=== PATIENT | female | born 1995 | race Caucasian/White ===

== ENCOUNTER 2017-09-01 00:26 | Emergency (ER) | payer OTHER ==
[2017-09-01] MEDS: ONDANSETRON ODT 4 MG TAB.RAPDIS. PO (01:19)
[2017-09-01] MEDS: ONDANSETRON PF 4 MG/2 ML VIAL. IV (01:45)
[2017-09-01] MEDS: IV NORMAL SALINE 1000ML BAG 1,000 ML IV (01:46)
[2017-09-01 01:49] LABS: ADD MAN DIFF? NO
[2017-09-01 01:54] LABS: BASO % 1 % (0-3); EOS % 5 % (0-3); HEMATOCRIT 39.7 % (36.0-47.0); HEMOGLOBIN 13.6 g/dL (12.0-15.5); LYMPH # 3.4 x10^3/uL (1.0-4.8); LYMPH % 40 % (24-48); MEAN CORPUSCULAR HEMOGLOBIN 29 pg (25-35); MEAN CORPUSCULAR HGB CONC 34 g/dL (31-37); MEAN CORPUSCULAR VOLUME 86 fL (79-100); MONO % 8 % (0-9); NEUT % 46 % (31-73); PLATELET COUNT 294 x10^3/uL (140-400); RED BLOOD COUNT 4.64 x10^6/uL (3.50-5.40); RED CELL DISTRIBUTION WIDTH 13.3 % (11.5-14.5); WHITE BLOOD COUNT 8.4 x10^3/uL (4.0-11.0)
[2017-09-01 01:59] LABS: URINE HCG POC HCG NEGATIVE (Negative)
[2017-09-01 01:59] LABS: BILIRUBIN,URINE NEGATIVE (NEG); GLUCOSE,URINE NEGATIVE (NEG); NITRITE,URINE POSITIVE (NEG); PROTEIN,URINE NEGATIVE (NEG-TRACE); UROBILINOGEN,URINE 0.2 mg/dL (0.2 mg/dL)
[2017-09-01 02:05] LABS: ANION GAP 9 (6-14); BLOOD UREA NITROGEN 14 mg/dL (7-20); BUN/CREATININE RATIO 16 (6-20); CALCIUM 8.6 mg/dL (8.5-10.1); CARBON DIOXIDE 28 mmol/L (21-32); CHLORIDE 105 mmol/L (98-107); CREATININE 0.9 mg/dL (0.6-1.0); GFR 80.7; GLUCOSE 93 mg/dL (70-99); POTASSIUM 3.9 mmol/L (3.5-5.1); SODIUM 142 mmol/L (136-145)
[2017-09-01 02:11] LABS: ALBUMIN 3.7 g/dL (3.4-5.0); ALBUMIN/GLOBULIN RATIO 1.1 (1.0-1.7); ALK PHOS 67 U/L (46-116); ALT (SGPT) 32 U/L (14-59); AST (SGOT) 36 U/L (15-37); TOTAL BILIRUBIN 0.2 mg/dL (0.2-1.0)
[2017-09-01 02:46] LABS: BACTERIA,URINE MANY /HPF (0-FEW); RBC,URINE 0 /HPF (0-2); SQUAMOUS EPITHELIAL CELL,UR MOD /LPF; WBC,URINE 20-40 /HPF (0-4)
[2017-09-01] MEDS: CEPHALEXIN 250 MG CAPSULE. PO (03:09)
== END 2017-09-01 03:10 | disposition home or self-care (01) ==
LOC: ER 00:26
DX: N39.0 Urinary tract infection, site not specified (principal); R07.89 Other chest pain; R11.2 Nausea with vomiting, unspecified
CPT/HCPCS: 36415; 71020; 80053; 81001; 81025; 83690; 85025; 87086; 87186; 93005; 96361; 96374; 99285-25; J2405; J7030; Q0162

== ENCOUNTER 2017-09-25 04:07 | Emergency (ER) | payer OTHER ==
[2017-09-25] MEDS: ONDANSETRON ODT 4 MG TAB.RAPDIS. PO (04:41)
[2017-09-25 04:46] LABS: AGAP ISTAT 17 mmol/L (6-14); BUN ISTAT 11 mg/dL (8-26); CHLORIDE ISTAT 104 mmol/L (98-110); CREATININE ISTAT 0.7 mg/dL (0.5-1.4); GLUCOSE ISTAT 90 mg/dL (70-99); HEMATOCRIT ISTAT 40 % (36-40); HEMOGLOBIN ISTAT 13.6 g/dL (12-15); ION CA ISTAT 1.18 mmol/L (1.13-1.32); POTASSIUM ISTAT 3.5 mmol/L (3.5-5.0); SODIUM ISTAT 141 mmol/L (135-145); TOT CO2 ISTAT 25 mmol/L (23-32)
== END 2017-09-25 05:25 | disposition home or self-care (01) ==
LOC: ER 05:25
DX: B34.9 Viral infection, unspecified (principal)
CPT/HCPCS: 36415; 80047; 85014; 85018; 99283; Q0162

== ENCOUNTER 2018-03-27 20:19 | Emergency (ER) | payer SELFPAY, OTHER ==
[2018-03-27 20:52] LABS: URINE HCG POC HCG NEGATIVE (Negative)
[2018-03-27 21:08] LABS: BASO % 0 % (0-3); EOS # 0.1 x10^3/uL (0.0-0.7); EOS % 1 % (0-3); HEMATOCRIT 45.9 % (36.0-47.0); HEMOGLOBIN 15.6 g/dL (12.0-15.5); LYMPH % 9 % (24-48); MEAN CORPUSCULAR HEMOGLOBIN 30 pg (25-35); MEAN CORPUSCULAR HGB CONC 34 g/dL (31-37); MEAN CORPUSCULAR VOLUME 87 fL (79-100); MONO # 0.5 x10^3/uL (0.0-1.1); MONO % 4 % (0-9); NEUT # 9.6 x10^3uL (1.8-7.7); NEUT % 86 % (31-73); PLATELET COUNT 293 x10^3/uL (140-400); RED BLOOD COUNT 5.28 x10^6/uL (3.50-5.40); RED CELL DISTRIBUTION WIDTH 12.9 % (11.5-14.5); WHITE BLOOD COUNT 11.2 x10^3/uL (4.0-11.0)
[2018-03-27 21:10] LABS: BILIRUBIN,URINE SMALL (NEG); CLARITY,URINE CLOUDY; COLOR,URINE YELLOW; GLUCOSE,URINE NEGATIVE (NEG); NITRITE,URINE NEGATIVE (NEG); PH,URINE 5.5; PROTEIN,URINE NEGATIVE (NEG-TRACE); UROBILINOGEN,URINE 0.2 mg/dL (0.2 mg/dL)
[2018-03-27] MEDS: ONDANSETRON PF 4 MG/2 ML VIAL. IV (21:10)
[2018-03-27 21:11] LABS: ADD MAN DIFF? YES
[2018-03-27] MEDS: PANTOPRAZOLE IV PUSH 40 MG VIAL. IVP (21:11)
[2018-03-27] MEDS: LIDO:MAALOX 1:1 20 ML SINGLE DOSE. SWSW (21:13)
[2018-03-27] MEDS: IV NORMAL SALINE 1000ML BAG 1,000 ML IV ×2 (21:13→22:06)
[2018-03-27 21:17] LABS: BACTERIA,URINE MODERATE /HPF (0-FEW); RBC,URINE 0 /HPF (0-2); SQUAMOUS EPITHELIAL CELL,UR MOD /LPF
[2018-03-27 21:21] LABS: ANION GAP 8 (6-14); BLOOD UREA NITROGEN 16 mg/dL (7-20); BUN/CREATININE RATIO 18 (6-20); CALCIUM 8.9 mg/dL (8.5-10.1); CARBON DIOXIDE 28 mmol/L (21-32); CHLORIDE 102 mmol/L (98-107); CREATININE 0.9 mg/dL (0.6-1.0); GFR 79.8; GLUCOSE 94 mg/dL (70-99); POTASSIUM 3.8 mmol/L (3.5-5.1); SODIUM 138 mmol/L (136-145)
[2018-03-27 21:21] LABS: ETHANOL < 10 mg/dL (0-10)
[2018-03-27 21:25] LABS: AMPHETAMINE/METHAMPHETAMINE NEG (NEG); BARBITURATES NEG (NEG); BENZODIAZEPINES NEG (NEG); CANNABINOIDS NEG (NEG); COCAINE NEG (NEG); ETHANOL, URINE NEG (NEG); METHADONE NEG (NEG); OPIATES NEG (NEG); PHENCYCLIDINE NEG (NEG)
[2018-03-27 21:29] LABS: ALBUMIN 4.1 g/dL (3.4-5.0); ALBUMIN/GLOBULIN RATIO 1.1 (1.0-1.7); ALK PHOS 79 U/L (46-116); ALT (SGPT) 30 U/L (14-59); AST (SGOT) 21 U/L (15-37); LIPASE 148 U/L (73-393); TOTAL BILIRUBIN 0.6 mg/dL (0.2-1.0); TOTAL PROTEIN 7.8 g/dL (6.4-8.2)
[2018-03-27 21:29] LABS: TROPONINI < 0.017 ng/mL (0.000-0.055)
[2018-03-27 21:34] LABS: CKMB INDEX 0.4 % (0-4); CKMB MASS 1.2 ng/mL (0.0-3.6); CREATINE KINASE 287 U/L (26-192)
[2018-03-27 21:42] LABS: % BANDS 4 % (0-9); % EOS 2 % (0-5); % LYMPHS 5 % (24-48); % METAS 1 % (0-0); % MONOS 5 % (0-10); % SEGS 83 % (35-66)
[2018-03-27 21:43] LABS: PLT ESTIMATE ADEQUATE (ADEQUATE)
== END 2018-03-27 22:59 | disposition home or self-care (01) ==
LOC: ER 22:59
DX: N39.0 Urinary tract infection, site not specified (principal); E86.0 Dehydration; K59.00 Constipation, unspecified; R51 Headache; R07.89 Other chest pain
CPT/HCPCS: 36415; 74022; 80053; 80307; 81001; 81025; 82553; 83690; 84484; 85007; 85025; 87086; 93005; 96361; 96365; 96375; 99285-25; C9113; G0480; J0690; J2405; J7030

== ENCOUNTER 2018-07-16 07:28 | Emergency (ER) | payer OTHER ==
[~2018-07-16] VITALS: Ht 154.9 cm; Wt 71.7 kg
[~2018-07-16 07:28] MED LIST: CEPH-264 PO; DICY20TA3 PO; METH40VI IJ; ONDA4TAB10 SL; SULF1TAB24 PO
--- NOTE | 2018-07-16 08:06 | PHYS DOC ---
Past Medical History Past Medical History: No Pertinent History Past Surgical History: Alcohol Use: None Drug Use: None Adult General Chief Complaint Chief Complaint: PAIN ON URINATION [facility] HPI Patient is a 22-year-old female who presents to the emergency department for evaluation. She states that for the past several days, she has been having some burning with urination, as well as some urinary frequency. She has not had any vaginal discharge or vaginal lesions. She has, however, developed a "cold sore" on her lip, and she states that about a week or so prior to the onset of her symptoms, she did have unprotected sex, both oral and vaginally, with a new partner. She has not had any fevers or chills. There are no alleviating, or exacerbating factors to her symptoms otherwise. Review of Systems Review of Systems Constitutional: Denies fever or chills [] Eyes: Denies change in visual acuity, redness, or eye pain [] Respiratory: Denies cough or shortness of breath [] Cardiovascular: No additional information not addressed in HPI [] GI: Denies abdominal pain, nausea, vomiting, bloody stools or diarrhea [] : Denies vaginal bleeding or pelvic pain, except discomfort with urination.[] Musculoskeletal: Denies back pain or joint pain [] Integument: Denies rash or skin lesions him except as noted in the history of present illness. [] Allergies Allergies Allergies Coded Allergies Type Severity Reaction Last Updated Verified No Known Drug Allergies 12/29/13 No Physical Exam Physical Exam PHYSICAL EXAM: CONSTITUTIONAL: Well developed, well nourished HEAD: normocephalic, atraumatic EENT: PERRL, EOMI. Conjunctivae normal color, sclerae non-icteric; moist mucous membranes. Just under to the vermilion border in the midline of the lower lip, there is a cluster of about 4-5 vesicular lesions on an erythematous base. NECK: Supple, non-tender; no meningismus. LUNGS: Lungs CTA, breathing even and unlabored. Normal air movement. HEART: Regular rate and rhythm, no murmur CHEST: No deformity; non-tender ABDOMEN: The abdomen is soft, and non-tender, no masses or bruits. EXTREM: Normal ROM; no deformity, no calf tenderness. Normal pulses palpable in all extremities. There is no pedal edema. SKIN: No rash; no diaphoresis NEURO: Alert; normal speech and cognition; CN's grossly intact; strength grossly intact without focal deficit. BACK: No CVA TTP. PELVIC EXAM: Normal external genitalia. There are no vesicular lesions noted or other genital lesions. There is a small amount of thin white vaginal discharge, the cervix appears normal, there is mild cervical motion tenderness. There is no suprapubic or adnexal tenderness to palpation. Exam was performed in the presence of the patient's nurse, Mireya. Current Patient Data Vital Signs Vital Signs Date Time Temp Pulse Resp B/P (MAP) Pulse Ox O2 Delivery O2 Flow Rate FiO2 07/16/18 07:45 98.5 71 16 113/63 (80) 99 Room Air 98.5 Lab Values Laboratory Tests Test 07/16/18 07:36 07/16/18 07:48 Urine Collection Type Unknown Urine Color Yellow Urine Clarity Cloudy Urine pH 5.5 Urine Specific Howard >=1.030 Urine Protein Negative mg/dL (NEG-TRACE) Urine Glucose (UA) Negative mg/dL (NEG) Urine Ketones (Stick) Negative mg/dL (NEG) Urine Blood Small (NEG) Urine Nitrite Negative (NEG) Urine Bilirubin Negative (NEG) Urine Urobilinogen Dipstick 0.2 mg/dL (0.2 mg/dL) Urine Leukocyte Esterase Moderate (NEG) Urine RBC 3-5 /HPF (0-2) Urine WBC >40 /HPF (0-4) Urine Squamous Epithelial Cells Many /LPF Urine Bacteria Many /HPF (0-FEW) Urine Mucus Marked /LPF POC Urine HCG, Qualitative Hcg negative (Negative) Microbiology 07/16/18 Wet Prep - Final, Complete WET PREP Final YEAST NONE SEEN TRICHOMONAS NONE SEEN CLUE CELLS NONE SEEN ALTERED SURAJ ALTERED SURAJ PRESENT SUGGESTIVE OF BACTERIAL VAGINOSIS SQUAMOUS EPS FEW EKG EKG [] Radiology/Procedures Radiology/Procedures [] Course & Med Decision Making Course & Med Decision Making Pertinent Lab studies reviewed. (See chart for details) [8:55 AM:Patient remains stable. I discussed test results, the need for close follow-up, and return precautions.] Dragon Disclaimer Dragon Disclaimer This electronic medical record was generated, in whole or in part, using a voice recognition dictation system. Departure Departure Impression: Primary Impression: Urinary tract infection Additional Impressions: Bacterial vaginosis Herpes labialis Disposition: HOME, SELF-CARE Condition: STABLE Referrals: NICOLE SEQUEIRA APRN (PCP) Patient Instructions: Bacterial Vaginosis, Genital Herpes, Herpes Labialis, Safe Sex, Urinary Tract Infection Scripts Metronidazole (FLAGYL) 500 Mg Tablet 1 TAB PO BID, #14 TAB Prov: JOHN CASTRO MD 07/16/18 Acyclovir (ACYCLOVIR) 400 Mg Tablet 1 TAB PO TID, #30 TAB Prov: JOHN CASTRO MD 07/16/18 Sulfamethoxazole/Trimethoprim (BACTRIM DS TABLET) 1 Each Tablet 1 TAB PO BID, #14 TAB Prov: JOHN CASTRO MD 07/16/18 Problem Qualifiers JOHN CASTRO MD Jul 16, 2018 08:06
[2018-07-16 08:11] LABS: BILIRUBIN,URINE NEGATIVE (NEG); CLARITY,URINE CLOUDY; COLOR,URINE YELLOW; NITRITE,URINE NEGATIVE (NEG); PH,URINE 5.5; PROTEIN,URINE NEGATIVE (NEG-TRACE); UROBILINOGEN,URINE 0.2 mg/dL (0.2 mg/dL)
[2018-07-16 08:24] LABS: BACTERIA,URINE MANY /HPF (0-FEW); SQUAMOUS EPITHELIAL CELL,UR MANY /LPF; WBC,URINE >40 /HPF (0-4)
[2018-07-16] MEDS ORDERED: METR500T PO (08:59)
[2018-07-16] MEDS ORDERED: ACYC400T PO (08:59)
[2018-07-16] MEDS ORDERED: SULF1TAB24 PO (08:59)
[2018-07-16] MEDS ORDERED: AZITHROMYCIN 250 MG TABLET. PO ONE (09:00)
[2018-07-16] MEDS ORDERED: cefTRIAXone IM 250 MG VIAL IM ONE (09:00)
[2018-07-16 09:52] VITALS: BP 110/61
[2018-07-17 14:29] LABS: GC PROBE Negative (Negative)
== END 2018-07-16 09:55 | disposition home or self-care (01) ==
LOC: ER 07:28
DX: N39.0 Urinary tract infection, site not specified (principal); N76.0 Acute vaginitis; B96.89 Other specified bacterial agents as the cause of diseases classified elsewhere; B00.1 Herpesviral vesicular dermatitis; Z98.890 Other specified postprocedural states
CPT/HCPCS: 81001; 81025; 87086; 87491; 87591; 96372; 99284; J0696; Q0111; Q0144; 87186

== ENCOUNTER 2018-08-24 16:07 | Emergency (ER) | payer OTHER ==
[~2018-08-24] VITALS: Ht 157.5 cm; Wt 69.4 kg
[~2018-08-24 16:07] MED LIST changes: +ACYC400T PO; +METR500T PO
[2018-08-24 16:15] VITALS: BP 114/62
--- NOTE | 2018-08-24 16:28 | PHYS DOC ---
Past Medical History Past Medical History: No Pertinent History Past Surgical History: Alcohol Use: None Drug Use: None Adult General Chief Complaint Chief Complaint: SEXUALLY TRANSMITTED DISEASE HPI HPI Patient is a 22 year old female presents to emergency room requesting STD testing. She denies having any current symptoms. She reports her sexual partner was having urethral discharge. Denies any abdominal or pelvic pain. Review of Systems Review of Systems Constitutional: Denies fever or chills [] Eyes: Denies change in visual acuity, redness, or eye pain [] HENT: Denies nasal congestion or sore throat [] Respiratory: Denies cough or shortness of breath [] Cardiovascular: No additional information not addressed in HPI [] GI: Denies abdominal pain, nausea, vomiting, bloody stools or diarrhea [] : Denies dysuria or hematuria [] Musculoskeletal: Denies back pain or joint pain [] Integument: Denies rash or skin lesions [] Neurologic: Denies headache, focal weakness or sensory changes [] Endocrine: Denies polyuria or polydipsia [] All other systems were reviewed and found to be within normal limits, except as documented in this note. Current Medications Current Medications Current Medications Medications (Trade) Dose Ordered Sig/Edwin Start Time Stop Time Status Last Admin Dose Admin Azithromycin (Zithromax) 1,000 mg 1X ONCE 08/24/18 16:30 18 16:31 DC Ceftriaxone Sodium (Rocephin Im) 250 mg 1X ONCE 18 16:30 1218 16:31 DC Allergies Allergies Allergies Coded Allergies Type Severity Reaction Last Updated Verified No Known Drug Allergies 12/29/13 No Physical Exam Physical Exam Constitutional: Well developed, well nourished, no acute distress, non-toxic appearance. [] Cardiovascular:Heart rate regular rhythm, no murmur [] Lungs & Thorax: Bilateral breath sounds clear to auscultation [] Abdomen: Bowel sounds normal, soft, no tenderness, no masses, no pulsatile masses. [] Skin: Warm, dry, no erythema, no rash. [] Back: No tenderness, no CVA tenderness. [] Neurologic: Alert and oriented X 3, normal motor function, normal sensory function, no focal deficits noted. [] Psychologic: Affect normal, judgement normal, mood normal. [] Current Patient Data Lab Values Laboratory Tests Test 08/24/18 16:15 08/24/18 16:27 Urine Collection Type Void Urine Color Yellow Urine Clarity Cloudy Urine pH 6.0 Urine Specific Hume 1.025 Urine Protein Negative mg/dL (NEG-TRACE) Urine Glucose (UA) Negative mg/dL (NEG) Urine Ketones (Stick) Negative mg/dL (NEG) Urine Blood Negative (NEG) Urine Nitrite Negative (NEG) Urine Bilirubin Negative (NEG) Urine Urobilinogen Dipstick 0.2 mg/dL (0.2 mg/dL) Urine Leukocyte Esterase Negative (NEG) Urine RBC 0 /HPF (0-2) Urine WBC Occ /HPF (0-4) Urine Squamous Epithelial Cells Few /LPF Urine Bacteria Few /HPF (0-FEW) Urine Mucus Mod /LPF POC Urine HCG, Qualitative Hcg negative (Negative) Microbiology 08/24/18 Wet Prep - Final, Complete EKG EKG [] Radiology/Procedures Radiology/Procedures [] Course & Med Decision Making Course & Med Decision Making Pertinent Labs and Imaging studies reviewed. (See chart for details) STD cultures are pending, patient is aware results in 2-3 days. She is treated for gonorrhea and chlamydia today in the emergency room, no intercourse for 7 days. Have her partners treated as well. Follow-up with primary care provider and return to ER for new or worsening symptoms.] Dragon Disclaimer Dragon Disclaimer This electronic medical record was generated, in whole or in part, using a voice recognition dictation system. Departure Departure Impression: Primary Impression: STD exposure Disposition: HOME, SELF-CARE Condition: STABLE Referrals: NICOLE SEQUEIRA APRN (PCP) Patient Instructions: Sexually Transmitted Disease, [id number] VIPIN RUIZ APRN Aug 24, 2018 16:28
[2018-08-24] MEDS ORDERED: AZITHROMYCIN 250 MG TABLET. PO ONE (16:30)
[2018-08-24] MEDS ORDERED: cefTRIAXone IM 250 MG VIAL IM ONE (16:30)
[2018-08-24 16:34] LABS: BILIRUBIN,URINE NEGATIVE (NEG); CLARITY,URINE CLOUDY; COLOR,URINE YELLOW; NITRITE,URINE NEGATIVE (NEG); PROTEIN,URINE NEGATIVE (NEG-TRACE); UROBILINOGEN,URINE 0.2 mg/dL (0.2 mg/dL)
[2018-08-24 16:49] LABS: BACTERIA,URINE FEW /HPF (0-FEW); RBC,URINE 0 /HPF (0-2)
[2018-08-24 16:50] LABS: SQUAMOUS EPITHELIAL CELL,UR FEW /LPF; WBC,URINE OCC /HPF (0-4)
[2018-08-26 13:19] LABS: GC PROBE Negative (Negative)
== END 2018-08-24 17:12 | disposition home or self-care (01) ==
LOC: ER 16:07
DX: Z20.2 Contact with and (suspected) exposure to infections with a predominantly sexual mode of transmission (principal)
CPT/HCPCS: 36415; 81001; 81025; 87491; 87591; 96372; 99283; J0696; Q0111; Q0144

== ENCOUNTER 2018-12-18 18:27 | Emergency (ER) | payer OTHER ==
[~2018-12-18] VITALS: Ht 167.6 cm; Wt 63.5 kg
[2018-12-18 20:02] VITALS: BP 124/75
[2018-12-18] MEDS ORDERED: CYCL5TAB PO (20:50)
--- NOTE | 2018-12-18 20:51 | PHYS DOC ---
Past Medical History Past Medical History: No Pertinent History Past Surgical History: Alcohol Use: None Drug Use: None Adult General Chief Complaint Chief Complaint: UPPER EXTREMITY PAIN HPI HPI Patient is a 23 year old female presents to the ED complaining of left shoulder injury times one day ago. 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 States she may have pulled a muscle while doing her routine. Pain with range of motion. Denies traumatic injury, fever, weakness, chest pain, shortness of breath, back pain, neck pain or headache. Review of Systems Review of Systems Constitutional: Denies fever or chills [] Eyes: Denies change in visual acuity, redness, or eye pain [] HENT: Denies nasal congestion or sore throat [] Respiratory: Denies cough or shortness of breath [] Cardiovascular: No additional information not addressed in HPI [] GI: Denies abdominal pain, nausea, vomiting, bloody stools or diarrhea [] : Denies dysuria or hematuria [] Musculoskeletal: Complains of shoulder injury. Denies back pain. Integument: Denies rash or skin lesions [] Neurologic: Denies headache, focal weakness or sensory changes [] All other systems were reviewed and found to be within normal limits, except as documented in this note. Allergies Allergies Allergies Coded Allergies Type Severity Reaction Last Updated Verified No Known Drug Allergies 12/29/13 No Physical Exam Physical Exam Constitutional: Well developed, well nourished, no acute distress, non-toxic appearance. [] HENT: Normocephalic, atraumatic, bilateral external ears normal, oropharynx moist, no oral exudates, nose normal. [] Eyes: PERRLA, EOMI, conjunctiva normal, no discharge. [] Neck: Normal range of motion, no tenderness, supple, no stridor. [] Cardiovascular:Heart rate regular rhythm, no murmur [] Lungs & Thorax: Bilateral breath sounds clear to auscultation [] Abdomen: Bowel sounds normal, soft, no tenderness, no masses, no pulsatile masses. [] Skin: Warm, dry, no erythema, no rash. [] Back: No tenderness, no CVA tenderness. [] Extremities: No bony tenderness, FROM. NV intact No overlying skin changes. no cyanosis, no clubbing, ROM intact, no edema. [] Neurologic: Alert and oriented X 3, normal motor function, normal sensory function, no focal deficits noted. [] Psychologic: Affect normal, judgement normal, mood normal. [] Current Patient Data Vital Signs Vital Signs Date Time Temp Pulse Resp B/P (MAP) Pulse Ox O2 Delivery O2 Flow Rate FiO2 12/18/18 20:02 97.7 84 18 124/75 (91) 99 Room Air 97.7 EKG EKG [] Radiology/Procedures Radiology/Procedures [] Course & Med Decision Making Course & Med Decision Making Pertinent Labs and Imaging studies reviewed. (See chart for details) []No bony tenderness. No imaging warranted. Discussed symptomatic treatment and will prescribe muscle relaxers outpatient. Discussed follow-up with orthopedics if pain persists. Provided contact information/education. Discussed reasons to return to the ED. Patient understands and agrees with plan. Dragon Disclaimer Dragon Disclaimer This electronic medical record was generated, in whole or in part, using a voice recognition dictation system. Departure Departure Impression: Primary Impression: Muscle strain Disposition: 01 HOME, SELF-CARE Condition: IMPROVED Referrals: NICOLE SEQUEIRA APRN (PCP) HUA RIVERA II, MD Patient Instructions: Muscle Strain Scripts Cyclobenzaprine Hcl (CYCLOBENZAPRINE HCL) 5 Mg Tablet 1 TAB PO TID, #10 TAB Prov: PATEL BROCK 12/18/18 PATEL BROCK Dec 18, 2018 20:51
[2019-02-18] MEDS ORDERED: NITR100C PO (03:03)
== END 2018-12-18 21:07 | disposition home or self-care (01) ==
LOC: ER 18:27
DX: S46.912A Strain of unspecified muscle, fascia and tendon at shoulder and upper arm level, left arm, initial encounter (principal); X50.9XXA Other and unspecified overexertion or strenuous movements or postures, initial encounter; Y93.41 Activity, dancing; Y92.89 Other specified places as the place of occurrence of the external cause; Y99.8 Other external cause status
CPT/HCPCS: 99283